=== PATIENT | female | born 1965 | race Caucasian/White ===

== ENCOUNTER → 2016-12-05 | Outpatient (CLI) | payer BC ==
--- NOTE | 2016-12-05 14:58 | Diagnostic Imaging Report ---
EXAMINATION: Right lower extremity duplex venous ultrasound. TECHNIQUE: DVT protocol. Multiple sonographic images with color Doppler and waveform interrogation were performed of the right lower extremity veins with compression and augmentation maneuvers. INDICATION: Right leg pain. FINDINGS: The right lower extremity veins from the groin to below the knee veins were examined with normal color-flow, compressibility and normal waveform demonstrated. The great saphenous vein is patent. IMPRESSION: No evidence of DVT in the right lower extremity. Dictated by: Dictated on workstation # [id number]
== END ==
LOC: RAD 14:12
PROVIDERS: ATTEND Nurse Practitioner Family
DX: M79.661 Pain in right lower leg (principal)

== ENCOUNTER → 2017-01-08 | Outpatient (CLI) | payer BC ==
--- NOTE | 2017-01-08 11:46 | Diagnostic Imaging Report ---
Transabdominal and transvaginal pelvic ultrasound. INDICATION: Right lower quadrant pain. FINDINGS: The uterus is 4.4 x 3.4 x 2.6 CM. The endometrial stripe is 0.6 CM in thickness. No internal vascularity seen. No focal myometrial mass is noted. The patient 3 years postmenopausal. The ovaries are not seen, likely obscured by bowel gas and small in size. The urinary bladder appears unremarkable. IMPRESSION: There is endometrial thickening measuring 0.6 CM. Underlying uterine hyperplasia, carcinoma or polyp could be present. Correlate clinically and with endometrial biopsy is needed. Report was called to Kyara Farnsworth by lyndsey at 11:45 am. Dictated by: Dictated on workstation # [id number]
== END ==
LOC: RAD 10:58
PROVIDERS: ATTEND Nurse Practitioner
DX: N85.2 Hypertrophy of uterus (principal); R10.31 Right lower quadrant pain
CPT/HCPCS: 76830; 76856

== ENCOUNTER → 2017-06-12 | Outpatient (CLI) | payer BC ==
--- NOTE | 2017-06-12 10:57 | Diagnostic Imaging Report ---
EXAMINATION: Right upper extremity venous vascular duplex ultrasound. INDICATION: Right upper extremity pain. FINDINGS: The right internal jugular vein is patent and compressible. The right subclavian vein demonstrate complete occlusive thrombosis with thrombus extension into the mid axillary vein, with total length of about 10 CM. The brachial vein is patent. The basilic, the radial, the ulnar and cephalic veins are patent. 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 The findings were discussed personally with Dr. Sidney Desai at 10 AM. Dictated by: Dictated on workstation # [id number]
== END ==
LOC: RAD 09:01
PROVIDERS: ATTEND Nurse Practitioner Family
DX: I82.A11 Acute embolism and thrombosis of right axillary vein (principal); I82.B11 Acute embolism and thrombosis of right subclavian vein

== ENCOUNTER 2017-06-14 11:02 | Emergency (ER) | payer BC ==
[~2017-06-14] VITALS: Ht 162.6 cm; Wt 54.9 kg
--- OUTSIDE RECORDS SUMMARY | 2017-06-14 11:08 | XMS REPORT | Clinical Summary ---
Author Author User, [employer] Lanie Mcrae DO, FACP Address Unknown Phone Allergies, Adverse Reactions, Alerts Allergy Name Reaction Description Start Date Severity Status Provider PENICILLIN Rash Critical Active Lanie Mcrae Conditions or Problems Problem Name Problem Code Onset Date Status Entry Date Provider Comment Standard Description Annotate UNSPECIFIED PERIPHERAL VASCULAR DISEASE 443.9 Resolved Lanie Mcrae Peripheral vascular disease, unspecified WELL WOMAN V70.0 Resolved Lanie Mcrae Routine general medical examination at a [facility] care facility RAYNAUD'S SYNDROME 443.0 Active Lanie Mcrae Raynaud's syndrome AUTOIMMUNE DISEASE NOT ELSEWHERE CLASSIFIED 279.49 Resolved Lanie Mcrae Autoimmune disease, not elsewhere classified POLYARTHRALGIA 719.49 Active Lanie Mcrae Pain in joint involving multiple sites HYPERCHOLESTEROLEMIA 272.0 Active Lanie Mcrae Pure hypercholesterolemia NEUROPATHY, IDIOPATHIC PERIPHERAL 356.9 Active Lanie Mcrae Unspecified idiopathic peripheral neuropathy VITAMIN B12 DEFICIENCY 266.2 Resolved Lanie Mcrae Other B-complex deficiencies RHEUMATOID ARTHRITIS 714.0 Resolved Lanie Mcrae Rheumatoid arthritis BRONCHITIS 490 Resolved Lanie Mcrae Bronchitis, not specified as acute or chronic CONNECTIVE TISSUE DISEASE, UNDIFFERENTIATED 710.9 Active Lanie Mcrae Unspecified diffuse connective tissue disease Medication List Medication Instructions Start Date Stop Date Generic Name [facility] Status Provider Patient Instruction ESTRIOL/ESTRADIOL (80/20%) 0.3MG/0.1ML CREAM APPLY 0.5ML TOPICALLY EVERY DAY ESTRIOL/ESTRADIOL (80/20%) 0.3MG/0.1ML CREAM Active Lanieshyam Mcrae PROGESTERONE CREAM 60MG/GM APPLY ONE HALF ML TOPICALLY AT HS DIRECTED 2014 PROGESTERONE CREAM 60MG/GM Active Lanie Mcrae TESTOSTERONE 0.2%/DELTA CREAM APPLY 0.25 ML TOPICALLY ONE DAILY DIRECTED TESTOSTERONE 0.2%/DELTA CREAM Active Lanieshaym Mcrae CLARITIN-D 12 HOUR [id number] 1 PO BID PRN LORATADINE- PSEUDOEPHEDRINE [id number] Active Lanieshyam Mcrae MULTIVITAMINS TABS 1 po daily MULTIPLE VITAMIN 87852663876 No Longer Active Lanie Chacha Mcrae PLAQUENIL 200 MG TAB 1.5 po QD HYDROXYCHLOROQUINE SULFATE 01368262676 No Longer Active Lanie Chacha Mcrae NABUMETONE 750 MG TABS 1 PO BID NABUMETONE 54029802799 No Longer Active Lanie Chacha Mcrae NIFEDIPINE 30 MG [id number] 1 PO daily NIFEDIPINE 59223392654 No Longer Active Lanie Chacha Mcrae TUSSIONEX PENNKINETIC ER 8-10 MG/5ML LQCR 1 tsp PO BID prn cough CHLORPHENIRAMINE-HYDROCODONE 12904371193 No Longer Active Lanie Chacha Mcrae KEFLEX 500 MG CAP 1 PO TID for 7 days CEPHALEXIN 63700111446 No Longer Active Lanie Chacha Mcrae TUSSIONEX PENNKINETIC ER 8-10 MG/5ML LQCR 1 tsp PO TID prn cough CHLORPHENIRAMINE-HYDROCODONE 93318087206 No Longer Active Lanie Chacha Mcrae FELDENE 10 MG CAPS 2 PO daily at night PIROXICAM 15463110788 No Longer Active Lanie Mcrae ALPRAZOLAM 0.25 MG TABS 1 po prn anxiety ALPRAZOLAM 07163356455 Active Lanie Chacha Rodriguezner Vital Signs Date Name Value Unit Range Description blood pressure, diastolic - 8462-4 60 mm[Hg] BP lua blood pressure, systolic - 8480-6 120 mm[Hg] BP sys pulse rate E&M - 8867-4 60 /min Heart rate respiratory rate E&M - 9279-1 14 /min Resp rate weight E&M - 3141-9 120 [lb_av] Weight Measured Diagnostic Results Date Name Value Unit Range Description Clinical Lists Update: CBC,CMP,TSH,FREE T4,HGA1C,FERRITIN - Chemistry Estimated Glomerular Filtration Rate (calc) 105 mL/min/1.73m2 glucose, plasma fasting 79 mg/dL albumin, serum 4.1 g/dL alkaline phosphatase, serum 42 U/L urea nitrogen, blood 17 mg/dL calcium, serum 8.9 mg/dL chloride, serum 101 mmol/L carbon dioxide, venous blood 25 mmol/L creatinine, serum 0.96 mg/dL ferritin, serum 13 ng/mL thyroxine, serum, free 1.3 ng/dL hemoglobin A1C, blood, as % of total hemoglobin 5.3 % thyroid stimulating hormone, serum 1.35 u[iU]/mL potassium, serum 4.4 mmol/L sodium, serum 135 mmol/L bilirubin, serum, total 0.6 mg/dL alanine aminotransferase (SGPT), serum 15 U/L aspartate aminotransferase (SGOT), serum 19 U/L protein, total, serum 6.4 g/dL Clinical Lists Update: CBC,CMP,TSH,FREE T4,HGA1C,FERRITIN - Hematology mean corpuscular volume, RBC 101.4 fL hemoglobin, blood 13.9 g/dL hematocrit, blood 41.0 % red blood cell distribution width 12.4 % leukocyte count, blood 4.9 10*3/mm3 erythrocyte (RBC) count 4.04 10*6/mm3 platelet count 298 10*3/mm3 Clinical Lists Update: ESR - Hematology erythrocyte sedimentation rate 2 mm/h Clinical Lists Update: [facility] - Chemistry cholesterol, serum 254 mg/dL cholesterol/HDL ratio, serum, percent 2.4 LDL cholesterol, serum 132 mg/dL triglyceride, serum, fasting 84 mg/dL HDL cholesterol, serum 105 mg/dL Encounters Code Encounter Date Provider Facility CPT-45892 Ofc Vst, Est Level IV 17:15:07 CDT Lanie Mcrae, DO, FACP CPT-45006 Ofc Vst, Est Level IV 17:13:37 CDT Lanie Mcrae, DO, FACP CPT-76710 Ofc Vst, Est Level III 12:50:11 WATERWORKS OPERATOR Lanie Mcrae, DO, FACP CPT-42054 Ofc Vst, Est Level III 10:07:15 WATERWORKS OPERATOR Lanie Mcrae, DO, FACP CPT-39535 Ofc Vst, Est Level IV 11:04:36 WATERWORKS OPERATOR Lanie Mcrae, DO, FACP CPT-39284 Ofc Vst, Est Level IV 11:27:21 WATERWORKS OPERATOR Lanie Mcrae, DO, FACP CPT-63058 Ofc Vst, New Level IV 15:18:55 WATERWORKS OPERATOR Lanie Mcrae, DO, FACP
--- OUTSIDE RECORDS SUMMARY | 2017-06-14 11:08 | XMS REPORT | Clinical Summary ---
Author Author User, [employer] Lanie Mcrae DO, FACP Address Unknown Phone [...] Mcrae Routine general medical examination at a [facility] care facility RAYNAUD'S SYNDROME 443.0 Active [...] Instructions Start Date Stop Date Generic Name [facility] Status Provider Patient Instruction ESTRIOL/ESTRADIOL (80/20%) 0.3MG/0.1ML CREAM APPLY 0.5ML TOPICALLY EVERY DAY ESTRIOL/ESTRADIOL (80/20%) 0.3MG/0.1ML CREAM Active Lanieshyam Mcrae PROGESTERONE CREAM 60MG/GM APPLY ONE HALF ML TOPICALLY AT HS DIRECTED 2014 PROGESTERONE CREAM 60MG/GM Active aLnie Mcrae TESTOSTERONE 0.2%/DELTA CREAM APPLY 0.25 ML TOPICALLY ONE DAILY DIRECTED TESTOSTERONE 0.2%/DELTA CREAM Active Lanieshyam Mcrae CLARITIN-D 12 HOUR [id number] 1 PO BID PRN LORATADINE- PSEUDOEPHEDRINE [id number] 26810154286 Active Lanieshyam Mcrae MULTIVITAMINS TABS 1 po daily MULTIPLE VITAMIN 87620780219 No Longer Active Lanie Chacha Mcrae PLAQUENIL 200 MG TAB 1.5 po QD HYDROXYCHLOROQUINE SULFATE 43071891669 No Longer Active Lanie Chacha Mcrae NABUMETONE 750 MG TABS 1 PO BID NABUMETONE 22419007717 No Longer Active Lanie Chacha Mcrae NIFEDIPINE 30 MG [id number] 1 PO daily NIFEDIPINE 11778350730 No Longer Active Lanie Chacha Mcrae TUSSIONEX PENNKINETIC ER 8-10 MG/5ML LQCR 1 tsp PO BID prn cough CHLORPHENIRAMINE-HYDROCODONE 68928274349 No Longer Active Lanie Chacha Mcrae KEFLEX 500 MG CAP 1 PO TID for 7 days CEPHALEXIN 82887383087 No Longer Active Lanie Chacha Mcrae TUSSIONEX PENNKINETIC ER 8-10 MG/5ML LQCR 1 tsp PO TID prn cough CHLORPHENIRAMINE-HYDROCODONE 77891944682 No Longer Active Lanie Chacha Mcrae FELDENE 10 MG CAPS 2 PO daily at night PIROXICAM 85110279152 No Longer Active Lanie Mcrae ALPRAZOLAM 0.25 MG TABS 1 po prn anxiety ALPRAZOLAM 74365747368 Active Lanie Chacha Rodriguezner Vital Signs Date [...] mg/dL Encounters Code Encounter Date Provider Facility CPT-94721 Ofc Vst, Est Level IV 17:15:07 CDT Lanie Mcrae, DO, FACP CPT-97271 Ofc Vst, Est Level IV 17:13:37 CDT Lanie Mcrae, DO, FACP CPT-50168 Ofc Vst, Est Level III 12:50:11 ELECTRONIC WARFARE OFFICER Lanie Mcrae, DO, FACP CPT-62491 Ofc Vst, Est Level III 10:07:15 ELECTRONIC WARFARE OFFICER Lanie Mcrae, DO, FACP CPT-96270 Ofc Vst, Est Level IV 11:04:36 ELECTRONIC WARFARE OFFICER Lanie Mcrae, DO, FACP CPT-31140 Ofc Vst, Est Level IV 11:27:21 ELECTRONIC WARFARE OFFICER Lanie Mcrae, DO, FACP CPT-20632 Ofc Vst, New Level IV 15:18:55 ELECTRONIC WARFARE OFFICER Lanie Mcrae, DO, FACP
--- OUTSIDE RECORDS SUMMARY | 2017-06-14 11:08 | XMS REPORT | Clinical Summary ---
Author Author User, [employer] Lanie Mcrae DO, CARLOP Address Unknown Phone Allergies, Adverse Reactions, Alerts Allergy Name Reaction Description Start Date Severity Status Provider PENICILLIN Rash Critical Active Lanie Mcrae Conditions or Problems Problem Name Problem Code Onset Date Status Entry Date Provider Comment Standard Description Annotate UNSPECIFIED PERIPHERAL VASCULAR DISEASE 443.9 Resolved Lanie Mcrae Peripheral vascular disease, unspecified WELL WOMAN V70.0 Resolved Lanie Mcrae Routine general medical examination at a [facility] care facility RAYNAUD'S SYNDROME 443.0 Active Lanie [...] Instructions Start Date Stop Date Generic Name NDC Status Provider Patient Instruction ESTRIOL/ESTRADIOL (80/20%) 0.3MG/0.1ML CREAM APPLY 0.5ML TOPICALLY EVERY DAY ESTRIOL/ESTRADIOL (80/20%) 0.3MG/0.1ML CREAM Active Lanie Mcrae PROGESTERONE CREAM 60MG/GM APPLY ONE HALF ML TOPICALLY AT HS DIRECTED 2014 PROGESTERONE CREAM 60MG/GM Active Lanie Mcrae TESTOSTERONE 0.2%/DELTA CREAM APPLY 0.25 ML TOPICALLY ONE DAILY DIRECTED TESTOSTERONE 0.2%/DELTA CREAM Active Lanie Mcrae CLARITIN-D 12 HOUR [id number] 1 PO BID PRN LORATADINE- PSEUDOEPHEDRINE [id number] 55935894305 Active Lanieshyam Mcrae MULTIVITAMINS TABS 1 po daily MULTIPLE VITAMIN 76960536778 No Longer Active Lanie Chacha Mcrae PLAQUENIL 200 MG TAB 1.5 po QD HYDROXYCHLOROQUINE SULFATE 47607966631 No Longer Active Lanieshyam Mcrae NABUMETONE 750 MG TABS 1 PO BID NABUMETONE 46788275468 No Longer Active Lanieshyam Mcrae NIFEDIPINE 30 MG [id number] 1 PO daily NIFEDIPINE 10552108598 No Longer Active Lanie Chacha Mcrae TUSSIONEX PENNKINETIC ER 8-10 MG/5ML LQCR 1 tsp PO BID prn cough CHLORPHENIRAMINE-HYDROCODONE 00428441782 No Longer Active Lanie Chacha Mcrae KEFLEX 500 MG CAP 1 PO TID for 7 days CEPHALEXIN 53315733387 No Longer Active Lanie Chacha Mcrae TUSSIONEX PENNKINETIC ER 8-10 MG/5ML LQCR 1 tsp PO TID prn cough CHLORPHENIRAMINE-HYDROCODONE 20823680322 No Longer Active Lanie Chacha Mcrae FELDENE 10 MG CAPS 2 PO daily at night PIROXICAM 67182839272 No Longer Active Lanie Mcrae ALPRAZOLAM 0.25 MG TABS 1 po prn anxiety ALPRAZOLAM 90251604123 Active Lanie Chacha Mcrae Vital Signs Date Name Value Unit Range [...] mg/dL Encounters Code Encounter Date Provider Facility CPT-96943 Ofc Vst, Est Level IV 17:15:07 CDT Lanie Mcrae, DO, FACP CPT-89183 Ofc Vst, Est Level IV 17:13:37 CDT Lanie Mcrae, DO, FACP CPT-24285 Ofc Vst, Est Level III 12:50:11 SUPERVISOR W[employer] Lanie Mcrae DO, FACP CPT-16701 Ofc Vst, Est Level III 10:07:15 [employer]PER[employer]OR [employer] Lanie Mcrae, DO, FACP CPT-16095 Ofc Vst, Est Level IV 11:04:36 SUPERVISOR [employer] Lanie Mcrae, DO, FACP CPT-00703 Ofc Vst, Est Level IV 11:27:21 SUPERVISOR [employer] Lanie Mcrae DO, FACP CPT-87874 Ofc Vst, New Level IV 15:18:55 SUPER[employer]OR [employer] Lanie Mcrae, DO, FACP
--- OUTSIDE RECORDS SUMMARY | 2017-06-14 11:09 | XMS REPORT | Clinical Summary ---
Author Author User, [employer] Lanie Mcrae DO, CARLOP Address Unknown Phone [...] Mcrae Routine general medical examination at a [facility] care facility RAYNAUD'S SYNDROME 443.0 Active [...] CREAM Active Lanie Mcrae CLARITIN-D 12 HOUR [id number] 1 PO BID PRN LORATADINE- PSEUDOEPHEDRINE [id number] 47476877205 Active Lanieshyam Mcrae MULTIVITAMINS TABS 1 po daily MULTIPLE VITAMIN 73558958736 No Longer Active Lanie Chacha Mcrae PLAQUENIL 200 MG TAB 1.5 po QD HYDROXYCHLOROQUINE SULFATE 16504952847 No Longer Active Lanieshyam Mcrae NABUMETONE 750 MG TABS 1 PO BID NABUMETONE 87810910316 No Longer Active Lanieshyam Mcrae NIFEDIPINE 30 MG [id number]-WPD 1 PO daily NIFEDIPINE 01644378117 No Longer Active Lanie Chacha Mcrae TUSSIONEX PENNKINETIC ER 8-10 MG/5ML LQCR 1 tsp PO BID prn cough CHLORPHENIRAMINE-HYDROCODONE 55944745837 No Longer Active Lanie Chacha Mcrae KEFLEX 500 MG CAP 1 PO TID for 7 days CEPHALEXIN 50454699300 No Longer Active Lanie Chacha Mcrae TUSSIONEX PENNKINETIC ER 8-10 MG/5ML LQCR 1 tsp PO TID prn cough CHLORPHENIRAMINE-HYDROCODONE 53991556067 No Longer Active Lanie Chacha Mcrae FELDENE 10 MG CAPS 2 PO daily at night PIROXICAM 40546633960 No Longer Active Lanieshyam Wilsone Clementina ALPRAZOLAM 0.25 MG TABS 1 po prn anxiety ALPRAZOLAM 51597910964 Active Lanie Mcrae Vital Signs Date Name Value Unit [...] Value Unit Range Description Clinical Lists Update: CBC,CMP,ESR,Ferritin,FLP - Chemistry urea nitrogen, blood 13 mg/dL alanine aminotransferase (SGPT), serum 21 U/L protein, total, serum 6.7 g/dL glucose, plasma fasting 91 mg/dL triglyceride, serum, fasting 204 mg/dL alkaline phosphatase, serum 43 U/L potassium, serum 3.9 mmol/L sodium, serum 137 mmol/L calcium, serum 9.4 mg/dL aspartate aminotransferase (SGOT), serum 24 U/L chloride, serum 100 mmol/L Estimated Glomerular Filtration Rate (calc) 73 mL/min/1.73m2 cholesterol, serum 258 mg/dL albumin, serum 4.5 g/dL carbon dioxide, venous blood 27 mmol/L ferritin, serum 15 ng/mL creatinine, serum 0.92 mg/dL bilirubin, serum, total 0.6 mg/dL Clinical Lists Update: CBC,CMP,ESR,Ferritin,FLP - Hematology hematocrit, blood 42.1 % erythrocyte (RBC) count 4.25 10*6/mm3 platelet count 304 10*3/mm3 erythrocyte sedimentation rate 9 mm/h leukocyte count, blood 5.5 10*3/mm3 hemoglobin, blood 14.2 g/dL red blood cell distribution width 13.0 % mean corpuscular volume, RBC 99.0 fL Clinical Lists Update: CBC,CMP,TSH,FREE T4,HGA1C,FERRITIN - Chemistry albumin, serum 4.1 g/dL alkaline phosphatase, serum 42 U/L urea nitrogen, blood 17 mg/dL calcium, serum 8.9 mg/dL chloride, serum 101 mmol/L creatinine, serum 0.96 mg/dL ferritin, serum 13 ng/mL thyroxine, serum, free 1.3 ng/dL hemoglobin A1C, blood, as % of total hemoglobin 5.3 % thyroid stimulating hormone, serum 1.35 u[iU]/mL potassium, serum 4.4 mmol/L protein, total, serum 6.4 g/dL aspartate aminotransferase (SGOT), serum 19 U/L alanine aminotransferase (SGPT), serum 15 U/L bilirubin, serum, total 0.6 mg/dL sodium, serum 135 mmol/L glucose, plasma fasting 79 mg/dL Estimated Glomerular Filtration Rate (calc) 105 mL/min/1.73m2 carbon dioxide, venous blood 25 mmol/L Clinical Lists Update: CBC,CMP,TSH,FREE T4,HGA1C,FERRITIN - Hematology erythrocyte (RBC) count 4.04 10*6/mm3 hematocrit, blood 41.0 % red blood cell distribution width 12.4 % leukocyte count, blood 4.9 10*3/mm3 platelet count 298 10*3/mm3 mean corpuscular volume, RBC 101.4 fL hemoglobin, blood 13.9 g/dL Clinical Lists Update: ESR - Hematology erythrocyte sedimentation rate 2 mm/h Clinical Lists Update: [facility] - Chemistry cholesterol/HDL ratio, serum, percent 2.4 triglyceride, serum, fasting 84 mg/dL HDL cholesterol, serum 105 mg/dL cholesterol, serum 254 mg/dL LDL cholesterol, serum 132 mg/dL Encounters Code Encounter Date Provider Facility CPT-77874 Ofc Vst, Est Level IV 17:15:07 CDT Lanie Mcrae, DO, FACP CPT-56560 Ofc Vst, Est Level IV 17:13:37 CDT Lanie Mcrae, DO, FACP CPT-40283 Ofc Vst, Est Level III 12:50:11 REGIONAL FLATBED TRUCK DRIVER Lanie Mcrae, DO, FACP CPT-62734 Ofc Vst, Est Level III 10:07:15 REGIONAL FLATBED TRUCK DRIVER Lanie Mcrae, DO, FACP CPT-37648 Ofc Vst, Est Level IV 11:04:36 REGIONAL FLATBED TRUCK DRIVER Lanie Mcrae, DO, FACP CPT-19617 Ofc Vst, Est Level IV 11:27:21 REGIONAL FLATBED TRUCK DRIVER Lanie Mcrae, DO, FACP CPT-26622 Ofc Vst, New Level IV 15:18:55 REGIONAL FLATBED TRUCK DRIVER Lanie Mcrae, DO, FACP
--- OUTSIDE RECORDS SUMMARY | 2017-06-14 11:09 | XMS REPORT | Clinical Summary ---
Author Author User, [employer] Lanie Mcrae DO, FACP Address Unknown Phone [...] Mcrae Routine general medical examination at a [facility] care facility RAYNAUD'S SYNDROME 443.0 Active [...] Lanie Mcrae Unspecified diffuse connective tissue disease MENOPAUSAL SYNDROME 627.0 Active Lanie Mcrae Premenopausal menorrhagia Medication List Medication Instructions Start Date Stop Date Generic Name NDC Status Provider Patient Instruction EEMT HS 0.625-1.25 MG TABS 1 po daily EST ESTROGENS- METHYLTEST 48658877894 Active Ann Mae CLIMARA PRO 0.045-0.015 MG/DAY PTWK 1 patch weekly ESTRADIOL- LEVONORGESTREL 30725014881 Active Lanie Mcrae ESTRIOL/ESTRADIOL (80/20%) 0.3MG/0.1ML CREAM APPLY 0.5ML TOPICALLY EVERY DAY ESTRIOL/ESTRADIOL (80/20%) 0.3MG/0.1ML CREAM No Longer Active Lanie Mcrae PROGESTERONE CREAM 60MG/GM APPLY ONE HALF ML TOPICALLY AT HS DIRECTED 2014 PROGESTERONE CREAM 60MG/GM No Longer Active Lanie Mcrae TESTOSTERONE 0.2%/DELTA CREAM APPLY 0.25 ML TOPICALLY ONE DAILY DIRECTED TESTOSTERONE 0.2%/EDLTA CREAM No Longer Active Fatimah Cleveland CLARITIN-D 12 HOUR [id number] 1 PO BID PRN LORATADINE- PSEUDOEPHEDRINE [id number] 05653895046 Active Lanie Mcrae MULTIVITAMINS TABS 1 po daily MULTIPLE VITAMIN 13477572935 No Longer Active Lanie Mcrae PLAQUENIL 200 MG TAB 1.5 po QD HYDROXYCHLOROQUINE SULFATE 56741828218 No Longer Active Lanieshyam Mcrae NABUMETONE 750 MG TABS 1 PO BID NABUMETONE 84480026711 No Longer Active Lanie Mcrae NIFEDIPINE 30 MG [id number]-RVM 1 PO daily NIFEDIPINE 67620710266 No Longer Active Lanie Mcrae TUSSIONEX PENNKINETIC ER 8-10 MG/5ML LQCR 1 tsp PO BID prn cough CHLORPHENIRAMINE-HYDROCODONE 29177269004 No Longer Active Lanieshyam Mcrae KEFLEX 500 MG CAP 1 PO TID for 7 days CEPHALEXIN 77307792387 No Longer Active Lanie Chacha Mcrae TUSSIONEX PENNKINETIC ER 8-10 MG/5ML LQCR 1 tsp PO TID prn cough CHLORPHENIRAMINE-HYDROCODONE 22915422553 No Longer Active Lanie Chacha Mcrae FELDENE 10 MG CAPS 2 PO daily at night PIROXICAM 73718927151 No Longer Active Lanie Chacha Mcrae ALPRAZOLAM 0.25 MG TABS 1 po prn anxiety ALPRAZOLAM 01355485430 Active Lanie Chacha Mcrae Vital Signs Date Name Value Unit Range Description blood pressure, diastolic - 8462-4 72 mm[Hg] BP lua blood pressure, systolic - 8480-6 116 mm[Hg] BP sys pulse rate E&M - 8867-4 72 /min Heart rate respiratory rate E&M - 9279-1 14 /min Resp rate temperature E&M 98.6 [degF] Body temperature weight E&M - 3141-9 128 [lb_av] Weight Measured blood pressure, diastolic - 8462-4 60 mm[Hg] [...] mg/dL Encounters Code Encounter Date Provider Facility CPT-45964 Ofc Vst, Est Level IV 17:47:15 CDT Lanie Mcrae DO, FACP CPT-57192 Ofc Vst, Est Level IV 17:15:07 CDT Lanie Mcrae DO, FACP CPT-62925 Ofc Vst, Est Level IV 17:13:37 CDT Lanie Mcrae DO, FACP CPT-54077 Ofc Vst, Est Level III 12:50:11 MANAGER QUAL[employer] SYSTEMS Lanie Mcrae DO, FACP CPT-52746 Ofc Vst, Est Level III 10:07:15 MANAGER [employer]AL[employer] SYSTEMS Lanie Mcrae DO, FACP CPT-83334 Ofc Vst, Est Level IV 11:04:36 MANAGER QUALITY SYSTEMS Lanie Mcrae DO, FACP CPT-90341 Ofc Vst, Est Level IV 11:27:21 MANAGER QUALITY SYSTEMS Lanie Mcrae DO, FACP CPT-94409 Ofc Vst, New Level IV 15:18:55 MANAGER QUALITY SYSTEMS Lanie Mcrae DO, FACP
--- OUTSIDE RECORDS SUMMARY | 2017-06-14 11:09 | XMS REPORT | Clinical Summary ---
Author Author User, [employer] Lanie Mcrae DO, FACP Address Unknown Phone [...] Mcrae Routine general medical examination at a [facility] care facility RAYNAUD'S SYNDROME 443.0 Active Lanie [...] Instructions Start Date Stop Date Generic Name [facility] Status Provider Patient Instruction ESTRIOL/ESTRADIOL (80/20%) 0.3MG/0.1ML CREAM APPLY 0.5ML TOPICALLY EVERY DAY ESTRIOL/ESTRADIOL (80/20%) 0.3MG/0.1ML CREAM Active Lanieshyam Mcrae PROGESTERONE CREAM 60MG/GM APPLY ONE HALF ML TOPICALLY AT HS DIRECTED 2014 PROGESTERONE CREAM 60MG/GM Active Lanie Mcrae TESTOSTERONE 0.2%/DELTA CREAM APPLY 0.25 ML TOPICALLY ONE DAILY DIRECTED TESTOSTERONE 0.2%/DELTA CREAM Active Lanieshyam Mcrae CLARITIN-D 12 HOUR [id number] 1 PO BID PRN LORATADINE- PSEUDOEPHEDRINE [id number] 59732317517 Active Lanieshyam Mcrae MULTIVITAMINS TABS 1 po daily MULTIPLE VITAMIN 66132285276 No Longer Active Lanie Chacha Mcrae PLAQUENIL 200 MG TAB 1.5 po QD HYDROXYCHLOROQUINE SULFATE 97533126623 No Longer Active Lanie Chacha Mcrae NABUMETONE 750 MG TABS 1 PO BID NABUMETONE 83745903839 No Longer Active Lanie Chacha Mcrae NIFEDIPINE 30 MG AP36R-YUD 1 PO daily NIFEDIPINE 34057369949 No Longer Active Lanie Chacha Mcrae TUSSIONEX PENNKINETIC ER 8-10 MG/5ML LQCR 1 tsp PO BID prn cough CHLORPHENIRAMINE-HYDROCODONE 47056069461 No Longer Active Lanie Chacha Mcrae KEFLEX 500 MG CAP 1 PO TID for 7 days CEPHALEXIN 93490805302 No Longer Active Lanie hCacha Mcrae TUSSIONEX PENNKINETIC ER 8-10 MG/5ML LQCR 1 tsp PO TID prn cough CHLORPHENIRAMINE-HYDROCODONE 85848273331 No Longer Active Lanie Chacha Mcrae FELDENE 10 MG CAPS 2 PO daily at night PIROXICAM 13437212326 No Longer Active Lanie Mcrae ALPRAZOLAM 0.25 MG TABS 1 po prn anxiety ALPRAZOLAM 65918873957 Active Lanie Chacha Rodriguezner Vital Signs Date [...] mg/dL Encounters Code Encounter Date Provider Facility CPT-31443 Ofc Vst, Est Level IV 17:15:07 CDT Lanie Mcrae, DO, FACP CPT-39263 Ofc Vst, Est Level IV 17:13:37 CDT Lanie Mcrae, DO, FACP CPT-03246 Ofc Vst, Est Level III 12:50:11 COLLAR SHAPER OPERATOR Lanie Mcrae, DO, FACP CPT-03928 Ofc Vst, Est Level III 10:07:15 COLLAR SHAPER OPERATOR Lanie Mcrae, DO, FACP CPT-07142 Ofc Vst, Est Level IV 11:04:36 COLLAR SHAPER OPERATOR Lanie Mcrae, DO, FACP CPT-77149 Ofc Vst, Est Level IV 11:27:21 COLLAR SHAPER OPERATOR Lanie Mcrae, DO, FACP CPT-19866 Ofc Vst, New Level IV 15:18:55 COLLAR SHAPER OPERATOR Lanie Mcrae, DO, FACP
--- OUTSIDE RECORDS SUMMARY | 2017-06-14 11:09 | XMS REPORT | Clinical Summary ---
Author Author User, [employer] Lanie Mcrae DO, FACP Address Unknown Phone [...] Mcrae Routine general medical examination at a [facility] care facility [facility] 443.0 Active [...] Instructions Start Date Stop Date Generic Name [facility] Status Provider Patient Instruction ESTRIOL/ESTRADIOL (80/20%) 0.3MG/0.1ML CREAM APPLY 0.5ML TOPICALLY EVERY DAY ESTRIOL/ESTRADIOL (80/20%) 0.3MG/0.1ML CREAM Active Lanieshyam Mcrae PROGESTERONE CREAM 60MG/GM APPLY ONE HALF ML TOPICALLY AT HS DIRECTED 2014 PROGESTERONE CREAM 60MG/GM Active Lanie Mcrae TESTOSTERONE 0.2%/DELTA CREAM APPLY 0.25 ML TOPICALLY ONE DAILY DIRECTED TESTOSTERONE 0.2%/DELTA CREAM Active Lanieshyam Mcrae CLARITIN-D 12 HOUR [id number] 1 PO BID PRN LORATADINE- PSEUDOEPHEDRINE [id number] 52768061539 Active Lanieshyam Mcrae MULTIVITAMINS TABS 1 po daily MULTIPLE VITAMIN 01788242318 No Longer Active Lanie Chacha Mcrae PLAQUENIL 200 MG TAB 1.5 po QD HYDROXYCHLOROQUINE SULFATE 83953086977 No Longer Active Lanie Chacha Mcrae NABUMETONE 750 MG TABS 1 PO BID NABUMETONE 88986864974 No Longer Active Lanie Chacha Mcrae NIFEDIPINE 30 MG [id number] 1 PO daily NIFEDIPINE 23057311089 No Longer Active Lanie Chacha Mcrae TUSSIONEX PENNKINETIC ER 8-10 MG/5ML LQCR 1 tsp PO BID prn cough CHLORPHENIRAMINE-HYDROCODONE 95328485065 No Longer Active Lanie Chacha Mcrae KEFLEX 500 MG CAP 1 PO TID for 7 days CEPHALEXIN 06082710360 No Longer Active Lanie Chacha Mcrae TUSSIONEX PENNKINETIC ER 8-10 MG/5ML LQCR 1 tsp PO TID prn cough CHLORPHENIRAMINE-HYDROCODONE 22632533686 No Longer Active Lanie Chacha Mcrae FELDENE 10 MG CAPS 2 PO daily at night PIROXICAM 64943910141 No Longer Active Lanie Mcrae ALPRAZOLAM 0.25 MG TABS 1 po prn anxiety ALPRAZOLAM 62947294365 Active Lanie Chacha Rodriguezner Vital Signs Date [...] mg/dL Encounters Code Encounter Date Provider Facility CPT-97128 Ofc Vst, Est Level IV 17:15:07 CDT Lanie Mcrae, DO, FACP CPT-60628 Ofc Vst, Est Level IV 17:13:37 CDT Lanie Mcrae, DO, FACP CPT-16391 Ofc Vst, Est Level III 12:50:11 MANPOWER DEVELOPMENT MANAGER Lanie Mcrae, DO, FACP CPT-82008 Ofc Vst, Est Level III 10:07:15 MANPOWER DEVELOPMENT MANAGER Lanie Mcrae, DO, FACP CPT-74486 Ofc Vst, Est Level IV 11:04:36 MANPOWER DEVELOPMENT MANAGER Lanie Mcrae, DO, FACP CPT-28210 Ofc Vst, Est Level IV 11:27:21 MANPOWER DEVELOPMENT MANAGER Lanie Mcrae, DO, FACP CPT-42327 Ofc Vst, New Level IV 15:18:55 MANPOWER DEVELOPMENT MANAGER Lanie Mcrae, DO, FACP
--- OUTSIDE RECORDS SUMMARY | 2017-06-14 11:09 | XMS REPORT | Clinical Summary ---
Author Author User, [employer] Lanie Mcrae DO, CARLOP Address Unknown Phone [...] Mcrae Routine general medical examination at a [facility] care facility [facility] 443.0 Active Lanie [...] CREAM Active Lanie Mcrae CLARITIN-D 12 HOUR [id number] 1 PO BID PRN LORATADINE- PSEUDOEPHEDRINE [id number] 15030329245 Active Lanieshyam Mcrae MULTIVITAMINS TABS 1 po daily MULTIPLE VITAMIN 92972364746 No Longer Active Lanie Chacha Mcrae PLAQUENIL 200 MG TAB 1.5 po QD HYDROXYCHLOROQUINE SULFATE 94078532164 No Longer Active Lanieshyam Mcrae NABUMETONE 750 MG TABS 1 PO BID NABUMETONE 91945294908 No Longer Active Lanieshyam Mcrae NIFEDIPINE 30 MG [id number] 1 PO daily NIFEDIPINE 70827889708 No Longer Active Lanie Chacha Mcrae TUSSIONEX PENNKINETIC ER 8-10 MG/5ML LQCR 1 tsp PO BID prn cough CHLORPHENIRAMINE-HYDROCODONE 10940797694 No Longer Active Lanie Chacha Mcrae KEFLEX 500 MG CAP 1 PO TID for 7 days CEPHALEXIN 59298551215 No Longer Active Lanie Chacha Mcrae TUSSIONEX PENNKINETIC ER 8-10 MG/5ML LQCR 1 tsp PO TID prn cough CHLORPHENIRAMINE-HYDROCODONE 14069920738 No Longer Active Lanie Chacha Mcrae FELDENE 10 MG CAPS 2 PO daily at night PIROXICAM 93459806922 No Longer Active Lanie Mcrae ALPRAZOLAM 0.25 MG TABS 1 po prn anxiety ALPRAZOLAM 28370348027 Active Lanie Chacha Mcrae Vital Signs Date [...] mg/dL Encounters Code Encounter Date Provider Facility CPT-41575 Ofc Vst, Est Level IV 17:15:07 CDT Lanie Mcrae, DO, FACP CPT-87916 Ofc Vst, Est Level IV 17:13:37 CDT Lanie Mcrae, DO, FACP CPT-80859 Ofc Vst, Est Level III 12:50:11 CLEANING VALIDATION CONSULTANT Lanie Mcrae DO, FACP CPT-83325 Ofc Vst, Est Level III 10:07:15 CLEANING VALIDATION CONSULTANT Lanie Mcrae, DO, FACP CPT-98209 Ofc Vst, Est Level IV 11:04:36 CLEANING VALIDATION CONSULTANT Lanie Mcrae, DO, FACP CPT-15392 Ofc Vst, Est Level IV 11:27:21 CLEANING VALIDATION CONSULTANT Lanie Mcrae DO, FACP CPT-03357 Ofc Vst, New Level IV 15:18:55 CLEANING VALIDATION CONSULTANT Lanie Mcrae, DO, FACP
--- OUTSIDE RECORDS SUMMARY | 2017-06-14 11:10 | XMS REPORT | Continuity of Care Document ---
Demographics Preferred Language Unknown Marital Status Unknown Druze Affiliation Unknown Race Unknown Ethnic Group Unknown Author Author [facility] Address Unknown Phone Unavailable Allergies Active Description Code Type Severity Reaction Onset Reported/Identified Relationship to Patient Clinical Status Yes Penicillins [id number] Drug Allergy Unknown RASH 09/06/2011 Medications There is no data. 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 09/10/2011 Ot 626.2 EXCESSIVE MENSTRUATION 09/11/2012 309.28 AD ADJ D/O W ANX DEP MOOD 09/11/2012 309.28 AD ADJ D/O W ANX DEP MOOD 08/08/2014 SHAYLA LAGOS Ot 704.1 08/08/2014 SHAYLA LAGOS Ot 782.62 08/18/2014 SHAYLA LAGOS Ot 704.1 08/18/2014 SHAYLA LAGOS Ot 782.62 05/20/2016 Ot 626.2 EXCESSIVE MENSTRUATION 05/20/2016 Ot 791.9 ABN URINE FINDINGS NEC 05/20/2016 Ot V72.83 EXAM PRE- OPERATIVE NEC 05/20/2016 MARCEL ADAMS Ot 616.0 CERVICITIS 05/20/2016 MARCEL ADAMS Ot 789.03 ABDOMINAL PAIN, RIGHT LOWER QUADRANT 05/20/2016 GLORIA HANSEN, JORY Romo Ot 478.19 OTHER DISEASE OF NASAL CAVITY AND SINUSE 05/20/2016 SHAYLA LAGOS Ot 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 Encounters ACCT No. Visit Date/Time Discharge Status Pt. Type Provider Facility Loc./Unit Complaint [id number] 09/11/2012 14:59:00 09/11/2012 23:59:59 CLS Outpatient [id number] 10/23/2012 14:57:00 Document Registration [id number] 01/08/2017 10:58:00 01/08/2017 23:59:59 CLS Outpatient MARCEL ADAMS SR VICE PRESIDENT [facility] RAD RLQ ABD PAIN [id number] 12/05/2016 14:12:00 12/05/2016 23:59:59 CLS Outpatient JOSE JARRETT SR VICE PRESIDENT [facility] RAD CALF PAIN [id number] 05/20/2016 08:07:00 05/20/2016 23:59:59 CLS Outpatient JOSE JARRETT SR VICE PRESIDENT [facility] RAD THYROMEGALY [id number] 07/29/2014 14:32:00 07/29/2014 23:59:59 CLS Outpatient SHAYLA LAGOS [facility] LAB HOT FLASHES,HIRSUTISM [id number] 12/15/2013 16:05:00 12/15/2013 23:59:59 CLS Outpatient JORY CASTRO MD [facility] RAD FRONTAL SINUS PAIN AND PRESSURE [id number] 11/19/2013 10:54:00 11/19/2013 23:59:59 CLS Outpatient MARCEL ADAMS SR VICE PRESIDENT [facility] RAD RLQ PAIN [id number] 09/10/2011 05:38:00 Document Registration [id number] 09/06/2011 08:00:00 Document Registration
[2017-06-14] MEDS ORDERED: THYR60TA2 (11:24)
[2017-06-14] MEDS ORDERED: DEXT20TA8 (11:24)
[2017-06-14] MEDS ORDERED: ALPR0.254 (11:24)
[2017-06-14] MEDS ORDERED: LORA-877 (11:24)
[2017-06-14] MEDS ORDERED: PROG200C6 (11:24)
--- NOTE | 2017-06-14 11:27 | ED Chest Pain ---
General Chief Complaint: Chest Pain Stated Complaint: CP AND SOB, DVT Nursing Triage Note: ARRIVED VIA AMB TO ROOM 05. PT HAS A KNOWN RIGHT SUBCLAVIAN BLOOD CLOT THAT SHE IS TAKING XERELTO FOR. PT PRESENTS TODAY WITH CHEST PAIN AND SOA STARTING YESTERDY. Nursing Sepsis Screen: No Definite Risk Source: patient, RN/MD, other Exam Limitations: no limitations History of Present Illness Time seen by provider: 11:10 Initial Comments Patient presents to ER by private conveyance with chief complaint that she is having some chest pain today. 2 days ago she was having some right arm swelling and pain and so she went to her primary care doctor who diagnosed her with a subclavian thrombosis on the right side and put her on Xarelto. The swelling has already improved but her pain has worsened today. Spoke with her primary care physician and he was concerned she might be experiencing a pulmonary embolism. She's having some shortness of breath. She is on hormone replacement therapy but does not smoke nor have any history of trauma recently. She has no personal history of cancer and she says her Pap smear, mammogram and colonoscopy are all up-to-date. She has no unexpected weight change. Discussed the case with Dr. Desai her primary care physician and he says that she has now had protein CAMP COUNSELOR, factor V Leiden other labs drawn and sent off. His thoughts were thoracic syndrome versus pulmonary embolism and if it is a PE there are certainly some invasive thrombectomy that may be done at at tertiary center so we should prove it and her out even though her vitals are not otherwise affected. His feeling is that the estrogen therapy may play a part in all his meds why he is asked her to stop that. He says she should be on day 3 of her Xarelto so is not exactly certain whether to call Xarelto failure if she did develop pulmonary embolism. Allergies and Home Medications Allergies Coded Allergies: Penicillins (Unverified Allergy, Unknown, RASH, 06/14/17) Home Medications Alprazolam 0.25 Mg Tablet, (Reported) Dextroamphetamine/Amphetamine 20 Mg Tablet, (Reported) Loratadine/Pseudoephedrine 1 Each Tab.er.24h, (Reported) Progesterone,Micronized 200 Mg Capsule, (Reported) Thyroid,Pork 60 Mg Tablet, (Reported) Review of Systems Constitutional: No chills, No diaphoresis EENTM: No Blurred Vision, No Eye Pain Respiratory: Denies Cough, Shortness of Air Cardiovascular: See HPI, Chest Pain, Denies Lightheadedness, Denies Palpitations, Denies Syncope Gastrointestinal: Denies Abdomen Distended, Denies Abdominal Pain Genitourinary: Denies Burning, Denies Discharge Musculoskeletal: No back pain, No joint pain Skin: No pruritus, No rash Psychiatric/Neurological: Denies Headache, Denies Numbness Past Plxpohw-Ogidgr-Ibljtr Hx Patient Social History Alcohol Use: Denies Use Recreational Drug Use: No Smoking Status: Never a Smoker Recent Foreign Travel: No Contact w/Someone Who Travel: No Recent Infectious Disease Expo: No Immunizations Up To Date Date of Influenza Vaccine: Apr 23, 2011 Respiratory History of Respiratory Disorde: No Cardiovascular History of Cardiac Disorders: No Neurological History of Neurological Disord: No Reproductive System Hx Reproductive Disorders: Yes (MENORRHAGIA) Genitourinary History of Genitourinary Disor: No Gastrointestinal History of Gastrointestinal Di: No Musculoskeletal 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) Psychosocial History of Psychiatric Problem: No Integumentary History of Skin or Integumenta: No Blood Transfusions History of Blood Disorders: No Physical Exam Vital Signs Vital Sign - Last 12Hours 06/14/17 11:02 Temp 98.0 Pulse 71 Resp 18 B/P (MAP) 126/82 (97) Pulse Ox 99 O2 Delivery Room Air Capillary Refill : Less Than 3 Seconds General Appearance: No Apparent Distress, WD/WN, Anxious HEENT: PERRL/EOMI, Pharynx Normal, Moist Mucous Membranes Neck: Full Range of Motion, Supple Respiratory: Chest Non Tender, Lungs Clear, Normal Breath Sounds, No Accessory Muscle Use, No Respiratory Distress Cardiovascular: Regular Rate, Rhythm, No Edema, No Gallop, No Murmur, Normal Peripheral Pulses Gastrointestinal: Non Tender, Soft Neurologic/Psychiatric: Alert, Oriented x3 Skin: Normal Color, Warm/Dry Progress/Results/Core Measures Results/Orders Lab Results Laboratory Tests Test 06/14/17 11:44 Range/Units White Blood Count 6.0 4.3-11.0 10^3/uL Red Blood Count 4.45 4.35-5.85 10^6/uL Hemoglobin 14.7 11.5-16.0 G/DL Hematocrit 42 35-52 % Mean Corpuscular Volume 94 80-99 FL Mean Corpuscular Hemoglobin 33 25-34 PG Mean Corpuscular Hemoglobin Concent 35 32-36 G/DL Red Cell Distribution Width 11.4 10.0-14.5 % Platelet Count 253 130-400 10^3/uL Mean Platelet Volume 8.9 7.4-10.4 FL Neutrophils (%) (Auto) 66 42-75 % Lymphocytes (%) (Auto) 24 12-44 % Monocytes (%) (Auto) 9 0-12 % Eosinophils (%) (Auto) 1 0-10 % Basophils (%) (Auto) 0 0-10 % Neutrophils # (Auto) 4.0 1.8-7.8 X 10^3 Lymphocytes # (Auto) 1.4 1.0-4.0 X 10^3 Monocytes # (Auto) 0.5 0.0-1.0 X 10^3 Eosinophils # (Auto) 0.1 0.0-0.3 10^3/uL Basophils # (Auto) 0.0 0.0-0.1 10^3/uL Sodium Level 142 135-145 MMOL/L Potassium Level 4.0 3.6-5.0 MMOL/L Chloride Level 106 98-107 MMOL/L Carbon Dioxide Level 27 21-32 MMOL/L Anion Gap 9 5-14 MMOL/L Blood Urea Nitrogen 12 7-18 MG/DL Creatinine 0.75 0.60-1.30 MG/DL Estimat Glomerular Filtration Rate > 60 BUN/Creatinine Ratio 16 Glucose Level 101 70-105 MG/DL Calcium Level 9.4 8.5-10.1 MG/DL Total Bilirubin 0.6 0.1-1.0 MG/DL Aspartate Amino Transf (AST/SGOT) 27 5-34 U/L Alanine Aminotransferase (ALT/SGPT) 24 0-55 U/L Alkaline Phosphatase 52 40-136 U/L Troponin I < 0.30 <0.30 NG/ML Total Protein 6.4 6.4-8.2 GM/DL Albumin 3.9 3.2-4.5 GM/DL My Orders Orders - OH COLIN Ekg Tracing (06/14/17 11:05) Continuous Ekg Monitoring (06/14/17 11:05) Ct Angio Chest W (06/14/17 11:31) Saline Lock/Iv-Start (06/14/17 11:31) Ns Iv 1000 Ml (Sodium Chloride 0.9%) (06/14/17 11:31) Cbc With Automated Diff (06/14/17 11:31) Comprehensive Metabolic Panel (06/14/17 11:31) Troponin I (06/14/17 11:31) Iohexol Injection (Omnipaque 350 Mg/Ml 1 (06/14/17 12:15) Ns (Ivpb) (Sodium Chloride 0.9% Ivpb Bag (06/14/17 12:15) Medications Given in ED Current Medications Medications Dose Ordered Sig/Jeanna Route Start Time Stop Time Status Last Admin Dose Admin Iohexol 150 ml ONCE ONCE IV 06/14/17 12:15 06/14/17 12:17 DC 06/14/17 12:20 125 ML Sodium Chloride 100 ml ONCE ONCE IV 06/14/17 12:15 06/14/17 12:17 DC 06/14/17 12:21 80 ML Sodium Chloride 1,000 ml @ 0 mls/hr Q0M ONCE IV 06/14/17 11:31 06/14/17 11:33 DC 06/14/17 11:42 1,000 MLS/HR Vital Signs/I&O Vital Sign - Last 12Hours 06/14/17 11:02 Temp 98.0 Pulse 71 Resp 18 B/P (MAP) 126/82 (97) Pulse Ox 99 O2 Delivery Room Air Blood Pressure Mean: 97 Progress Note : Time: 13:48 Progress Note Patient is on day 3 of her loading dose of Xarelto so despite having pulmonary embolisms is not immediately necessary does heparinize her. We will discuss anticoagulation as well as possible embolectomy with CT surgery. ECG Initial ECG Impression Date: Jun 14, 2017 Initial ECG Impression Time: 11:06 Initial ECG Rate: 74 Initial ECG Rhythm: Normal Sinus Initial ECG Intervals: Normal Initial ECG Impression: Normal, Nonspecific Changes Initial ECG Comparisson: No Previous ECG Available Comment No T-wave elevation or depression. Diagnostic Imaging Diagonstic Imaging: CT (angio) Plain Films/CT/US/NM/MRI: chest Comments Pulmonary embolisms bilateral lower lungs. 6 mm nodule needing follow-up. [place] NAME: LEIDY BURROWS [facility] REC#: [id number] PT STATUS: REG ER : 1965 PHYSICIAN: OH COLIN MD ADMIT DATE: 06/14/17/ER Draft Date of Exam:06/14/17 CT ANGIO CHEST W CLINICAL INDICATION: Followup DVT of right subclavian vein. Patient has chest pain with coughing. EXAM: CT angiogram of the chest performed with 125 cc Omnipaque 350 IV contrast. Coronal and oblique MIP images of the vasculature were created to better evaluate anatomy. COMPARISON: None. FINDINGS: There is contrast bolus within the left subclavian vein, left innominate vein, and superior vena cava which causes streak artifact obscuring portions of the aortic arch and great vessels. Visualized portions of the right subclavian artery, bilateral CCA and bilateral cervical vertebral arteries are patent. The right subclavian vein has no contrast within it to evaluate. There are partially occlusive intravascular thrombi seen within the posterior medial subsegmental branch of the right lower lobe pulmonary artery. There is also a partially occlusive intravascular thrombus within the anterior subsegmental branch of the left lower lobe. There is no thoracic aortic dissection or aneurysm. There is mild dependent atelectasis involving the posterior aspects of both lungs. There is a 6 mm soft tissue nodule involving the lateral aspect of right lower lobe seen on series 4, image 84. Otherwise, the remainder of the lungs are clear. Pulmonary bronchi are unremarkable. The thyroid gland is unremarkable as visualized. There is no significant mediastinal or hilar lymphadenopathy. There is no axillary lymphadenopathy. Bilateral subglandular breast implants are seen. The visualized portions of the upper abdominal structures are unremarkable. Bone show no significant acute process. IMPRESSION: 1: There are partially occlusive pulmonary emboli/intravascular thrombus within the subsegmental branches of the right and left lower lobes. 2: There is a 6 mm nodule within the lateral aspect of right lower lobe. Followup chest CT scan in six months is suggested to evaluate for stability or resolution. Results of this report were discussed with Dr. Oh Colin via the telephone on 06/14/2017 at 1245 hrs. CRITICAL FINDING Dictated on workstation # [id number] Dict: 06/14/17 1239 Trans: 06/14/17 1257 KB [id number] Interpreted by: MAC ARMIJO MD Electronically signed by: Reviewed: Reviewed by Me Consults Consults : Consults Notes [facility]: CT Surgeon consult Triage coordinator 1315: Will have a trap puller call you back. 1345: Checked back in. trap puller: 1405: Will have the physician review the images and then call us back. 1455: Dr Chaney: He feels that the clots are in the acute phase when a migration from the subclavian thrombus is most likely so he would consider this a failure of the Xarelto and would recommend we switch her to develop this as well as cover her until you get up to therapeutic dosing with Lovenox 1 mg/kg twice a day. He would also suggested we check a factor X a level in 2-3 days on the Lovenox. He would continue treatment with L acquits for 3-6 months. 3 months as long as she was asymptomatic for the last month area longer she has any problems. As far as the nodule; it is too small for any kind of diagnostic imaging or biopsy so he would repeat a CT scan in 6-12 months a stoma level of the patient's anxiety. Also he feels that since the patient is a lifelong nonsmoker that adenocarcinoma would be the most likely cancer and this is often as much as 20% false-negative on PET scans. Because the patient has normal vitals and is otherwise asymptomatic except for mild shortness of breath and mild chest pain he recommends against TPA or embolectomy as the risks outweigh the benefits. Departure Communication (PCP) Discussed case lab imaging findings and Dr. Chaney's recommendations with the PCP. Discussed the need for repeat CT scan in 612 months as well as check after 10 a levels in 2-3 days on the Lovenox. Discussed anticoagulation strategy. Discussed getting the CT scans that are already planned to workup vena cava compression or thoracic outlet syndrome. Impression Impression: Primary Impression: Pulmonary embolism Qualified Codes: I26.99 - Other pulmonary embolism without acute cor pulmonale Additional Impression: Acute embolism from right subclavian vein Disposition: 01 HOME, SELF-CARE Condition: Stable Departure-Patient Inst. Decision time for Depature: 15:17 Referrals: MARIAELENA DESAI DO (PCP) Primary Care Physician JOSE DESAI, EFREN (Family) Primary Care Physician Patient Instructions: Pulmonary Embolism (Blood Clot in the Lungs) (DC) Add. Discharge Instructions: Make sure drinking plenty of water and obtain the Lovenox to be taken 55 mg subcutaneously twice a day. 2-3 days after he start the Lovenox you should follow up with your primary care physician to have blood drawn for a factor X a level. Start the Eliquis tonight and take 2 capsules twice a day for 7 days. Then take one capsule twice a day. Plan to follow up with your primary care physician in one to 2 weeks. Plan to repeat a CT scan in 6-12 months for the right pulmonary nodule seen today on CT scan. Return to the ER if you have acute shortness of breath, chest pain or worsening symptoms. All discharge instructions reviewed with patient and/or family. Voiced understanding. Scripts Apixaban (Eliquis) 5 Mg Tablet 5 MG PO BID for 30 Days, #60 TAB 0 Refills Prov: OH COLIN 06/14/17 Apixaban (Eliquis) 5 Mg Tablet 10 MG PO BID for 7 Days, #28 TAB 0 Refills 2 TABLETS TWICE DAILY X 7 DAYS Prov: OH COLIN 06/14/17 Enoxaparin Sodium (Lovenox) 60 Mg/0.6 Ml Syringe 55 MG SQ Q12H for 14 Days, #28 SYRINGE 0 Refills Prov: OH COLIN 06/14/17 Copy Copies To 1: MARIAELENA DESAI DO OH COLIN Jun 14, 2017 11:27
[2017-06-14] MEDS ORDERED: NS IV 1000 ML 1,000 ML IV ONE (11:31)
[2017-06-14 11:49] LABS: BASOPHILS % (AUTO) 0 % (0-10); EOSINOPHILS # (AUTO) 0.1 10^3/uL (0.0-0.3); EOSINOPHILS % (AUTO) 1 % (0-10); LYMPHOCYTES # (AUTO) 1.4 X 10^3 (1.0-4.0); LYMPHOCYTES % (AUTO) 24 % (12-44); MEAN CORPUSCULAR HEMOGLOBIN 33 PG (25-34); MEAN CORPUSCULAR HGB CONC 35 G/DL (32-36); MEAN CORPUSCULAR VOLUME 94 FL (80-99); MEAN PLATELET VOLUME 8.9 FL (7.4-10.4); MONOCYTES # (AUTO) 0.5 X 10^3 (0.0-1.0); MONOCYTES % (AUTO) 9 % (0-12); NEUTROPHILS % (AUTO) 66 % (42-75); PLATELET COUNT 253 10^3/uL (130-400); RED BLOOD COUNT 4.45 10^6/uL (4.35-5.85); RED CELL DISTRIBUTION WIDTH 11.4 % (10.0-14.5)
[2017-06-14 12:06] LABS: ALANINE AMINOTRANSFERASE 24 U/L (0-55); ALBUMIN 3.9 GM/DL (3.2-4.5); ANION GAP 9 MMOL/L (5-14); ASPARTATE AMINO TRANSFERASE 27 U/L (5-34); BILIRUBIN,TOTAL 0.6 MG/DL (0.1-1.0); BLOOD UREA NITROGEN 12 MG/DL (7-18); BUN/CREATININE RATIO 16; CALCIUM 9.4 MG/DL (8.5-10.1); CARBON DIOXIDE 27 MMOL/L (21-32); CHLORIDE 106 MMOL/L (98-107); CREATININE SERUM 0.75 MG/DL (0.60-1.30); GFR ESTIMATED > 60; GLUCOSE 101 MG/DL (70-105); SODIUM 142 MMOL/L (135-145); TOTAL PROTEIN 6.4 GM/DL (6.4-8.2)
[2017-06-14 12:12] LABS: TROPONIN I < 0.30 NG/ML (<0.30)
[2017-06-14] MEDS ORDERED: NS 100 ML (IVPB) BAG IV ONE (12:15)
[2017-06-14] MEDS ORDERED: IOHEXOL 350 MG/ML 150 ML (OMNIPAQUE 350) VIAL IV ONE (12:15)
--- NOTE | 2017-06-14 12:58 | Diagnostic Imaging Report ---
CLINICAL INDICATION: Followup DVT of right subclavian vein. Patient has chest pain with coughing. EXAM: CT angiogram of the chest performed with 125 cc Omnipaque 350 IV contrast. Coronal and oblique MIP images of the vasculature were created to better evaluate anatomy. COMPARISON: None. FINDINGS: There is contrast bolus within the left subclavian vein, left innominate vein, and superior vena cava which causes streak artifact obscuring portions of the aortic arch and great vessels. Visualized portions of the right subclavian artery, bilateral CCA and bilateral cervical vertebral arteries are patent. The right subclavian vein has no contrast within it to evaluate. There are partially occlusive intravascular thrombi seen within the posterior medial subsegmental branch of the right lower lobe pulmonary artery. There is also a partially occlusive intravascular thrombus within the anterior subsegmental branch of the left lower lobe. There is no thoracic aortic dissection or aneurysm. There is mild dependent atelectasis involving the posterior aspects of both lungs. There is a 6 mm soft tissue nodule involving the lateral aspect of right lower lobe seen on series 4, image 84. Otherwise, the remainder of the lungs are clear. Pulmonary bronchi are unremarkable. The thyroid gland is unremarkable as visualized. There is no significant mediastinal or hilar lymphadenopathy. There is no axillary lymphadenopathy. Bilateral subglandular breast implants are seen. The visualized portions of the upper abdominal structures are unremarkable. Bone show no significant acute process. IMPRESSION: 1: There are partially occlusive pulmonary emboli/intravascular thrombus within the subsegmental branches of the right and left lower lobes. 2: There is a 6 mm nodule within the lateral aspect of the right lower lobe. Followup chest CT scan in six months is suggested to evaluate for stability or resolution. Results of this report were discussed with Dr. Oh Colin via the telephone on 06/14/2017 at 1245 hrs. CRITICAL FINDING Dictated by: Dictated on workstation # [id number]
[2017-06-14] MEDS ORDERED: APIX5TAB PO (15:24)
[2017-06-14] MEDS ORDERED: ENOX60DI12 SQ (15:24)
[2017-06-14] MEDS ORDERED: ENOXAPARIN 60 MG/0.6 ML (LOVENOX) SYR SC ONE (15:30)
[2017-06-14 15:39] VITALS: BP 123/87
== END 2017-06-14 15:39 | disposition home or self-care (01) ==
LOC: EDUNIT# 11:02 → ER 11:04
DX: I26.99 Other pulmonary embolism without acute cor pulmonale (principal); I82.B11 Acute embolism and thrombosis of right subclavian vein; E06.3 Autoimmune thyroiditis; Z79.01 Long term (current) use of anticoagulants
CPT/HCPCS: 36415; 71275; 80053; 84484; 85025; 93005

== ENCOUNTER 2017-06-21 17:05 | Emergency (ER) | payer BC ==
[~2017-06-21] VITALS: Ht 165.1 cm; Wt 54.4 kg
[~2017-06-21 17:05] MED LIST: ALPR0.254; APIX5TAB PO; DEXT20TA8; ENOX60DI12 SQ; LORA-877; PROG200C6; THYR60TA2
--- OUTSIDE RECORDS SUMMARY | 2017-06-21 17:11 | XMS REPORT | Continuity of Care Document ---
Demographics Preferred Language Unknown Marital Status Unknown Quaker Affiliation Unknown Race Unknown Ethnic Group Unknown Author Author [facility] Address Unknown Phone Unavailable Allergies Active Description Code Type Severity Reaction Onset Reported/Identified Relationship to Patient Clinical Status Yes Penicillins [id number] Drug Allergy Unknown RASH 09/06/2011 Medications There [...] Procedures Code [place] [address] PSYCH DIAGNOSTIC EVALUATION 09/11/2012 73846 PSYTX PT&/FAMILY 45 MINUTES 10/23/2012 Results Test Result Range Complete blood count (CBC) with automated white blood cell (WBC) differential - 06/14/17 11:44 Blood leukocytes automated count (number/volume) 6.0 10*3/uL 4.3-11.0 Blood erythrocytes automated count (number/volume) 4.45 10*6/uL 4.35-5.85 Venous blood hemoglobin measurement (mass/volume) 14.7 g/dL 11.5-16.0 Blood hematocrit (volume fraction) 42 % 35-52 Automated erythrocyte mean corpuscular volume 94 [foz_us] 80-99 Automated erythrocyte mean corpuscular hemoglobin (mass per erythrocyte) 33 pg 25-34 Automated erythrocyte mean corpuscular hemoglobin concentration measurement ( mass/volume) 35 g/dL 32-36 Automated erythrocyte distribution width ratio 11.4 % 10.0-14.5 Automated blood platelet count (count/volume) 253 10*3/uL 130-400 Automated blood platelet mean volume measurement 8.9 [foz_us] 7.4-10.4 Automated blood neutrophils/100 leukocytes 66 % 42-75 Automated blood lymphocytes/100 leukocytes 24 % 12-44 Blood monocytes/100 leukocytes 9 % 0-12 Automated blood eosinophils/100 leukocytes 1 % 0-10 Automated blood basophils/100 leukocytes 0 % 0-10 Blood neutrophils automated count (number/volume) 4.0 10*3 1.8-7.8 Blood lymphocytes automated count (number/volume) 1.4 10*3 1.0-4.0 Blood monocytes automated count (number/volume) 0.5 10*3 0.0-1.0 Automated eosinophil count 0.1 10*3/uL 0.0-0.3 Automated blood basophil count (count/volume) 0.0 10*3/uL 0.0-0.1 Comprehensive metabolic panel - 06/14/17 11:44 Serum or plasma sodium measurement (moles/volume) 142 mmol/L 135-145 Serum or plasma potassium measurement (moles/volume) 4.0 mmol/L 3.6-5.0 Serum or plasma chloride measurement (moles/volume) 106 mmol/L 98-107 Carbon dioxide 27 mmol/L 21-32 Serum or plasma anion gap determination (moles/volume) 9 mmol/L 5-14 Serum or plasma urea nitrogen measurement (mass/volume) 12 mg/dL 7-18 Serum or plasma creatinine measurement (mass/volume) 0.75 mg/dL 0.60-1.30 Serum or plasma urea nitrogen/creatinine mass ratio 16 NRG Serum or plasma creatinine measurement with calculation of estimated glomerular filtration rate > NRG Serum or plasma glucose measurement (mass/volume) 101 mg/dL 70-105 Serum or plasma calcium measurement (mass/volume) 9.4 mg/dL 8.5-10.1 Serum or plasma total bilirubin measurement (mass/volume) 0.6 mg/dL 0.1-1.0 Serum or plasma alkaline phosphatase measurement (enzymatic activity/volume) 52 U/L 40-136 Serum or plasma aspartate aminotransferase measurement (enzymatic activity/ volume) 27 U/L 5-34 Serum or plasma alanine aminotransferase measurement (enzymatic activity/volume ) 24 U/L 0-55 Serum or plasma protein measurement (mass/volume) 6.4 g/dL 6.4-8.2 Serum or plasma albumin measurement (mass/volume) 3.9 g/dL 3.2-4.5 Serum or plasma troponin i.cardiac measurement (mass/volume) - 06/14/17 11:44 Serum or plasma troponin i.cardiac measurement (mass/volume) < ng/ mL <0.30 Encounters ACCT No. Visit Date/Time Discharge Status Pt. Type Provider Facility Loc./Unit Complaint [id number] 09/11/2012 14:59:00 09/11/2012 23:59:59 CLS Outpatient [id number] 10/23/2012 14:57:00 Document Registration [id number] 01/08/2017 10:58:00 01/08/2017 23:59:59 CLS Outpatient MARCEL ADAMS [employer] [facility] RAD RLQ ABD PAIN [id number] 12/05/2016 14:12:00 12/05/2016 23:59:59 CLS Outpatient JOSE JARRETT [employer] [facility] RAD CALF PAIN [id number] 05/20/2016 08:07:00 05/20/2016 23:59:59 CLS Outpatient JOSE JARRETT [employer] [facility] RAD THYROMEGALY [id number] 07/29/2014 14:32:00 07/29/2014 23:59:59 CLS Outpatient SHAYLA LAGOS [facility] LAB HOT FLASHES,HIRSUTISM [id number] 12/15/2013 16:05:00 12/15/2013 23:59:59 CLS Outpatient GLORIA HANSEN, JORY Romo [facility] RAD FRONTAL SINUS PAIN AND PRESSURE [id number] 11/19/2013 10:54:00 11/19/2013 23:59:59 CLS Outpatient MARCEL ADAMS [facility] RAD RLQ PAIN [id number] 06/14/2017 11:50:00 Document Registration [id number] 09/10/2011 05:38:00 Document Registration [id number] 09/06/2011 08:00:00 Document Registration
[2017-06-21 18:24] LABS: BASOPHILS % (AUTO) 1 % (0-10); EOSINOPHILS # (AUTO) 0.1 10^3/uL (0.0-0.3); EOSINOPHILS % (AUTO) 2 % (0-10); HEMATOCRIT 40 % (35-52); HEMOGLOBIN 14.1 G/DL (11.5-16.0); LYMPHOCYTES # (AUTO) 2.2 X 10^3 (1.0-4.0); LYMPHOCYTES % (AUTO) 36 % (12-44); MEAN CORPUSCULAR HEMOGLOBIN 33 PG (25-34); MEAN CORPUSCULAR HGB CONC 36 G/DL (32-36); MEAN CORPUSCULAR VOLUME 92 FL (80-99); MEAN PLATELET VOLUME 8.9 FL (7.4-10.4); MONOCYTES # (AUTO) 0.7 X 10^3 (0.0-1.0); MONOCYTES % (AUTO) 11 % (0-12); NEUTROPHILS # (AUTO) 3.1 X 10^3 (1.8-7.8); NEUTROPHILS % (AUTO) 51 % (42-75); PLATELET COUNT 286 10^3/uL (130-400); RED BLOOD COUNT 4.28 10^6/uL (4.35-5.85); RED CELL DISTRIBUTION WIDTH 11.3 % (10.0-14.5); WHITE BLOOD COUNT 6.2 10^3/uL (4.3-11.0)
[2017-06-21 18:30] LABS: INR 0.9 (0.8-1.4); PROTHROMBIN TIME PATIENT 12.6 SEC (12.2-14.7)
[2017-06-21 18:40] LABS: ALANINE AMINOTRANSFERASE 93 U/L (0-55); ALBUMIN 3.8 GM/DL (3.2-4.5); ALKALINE PHOSPHATASE 46 U/L (40-136); BILIRUBIN,TOTAL 0.3 MG/DL (0.1-1.0); BUN/CREATININE RATIO 24; CARBON DIOXIDE 24 MMOL/L (21-32); CHLORIDE 107 MMOL/L (98-107); CREATININE SERUM 0.75 MG/DL (0.60-1.30); GFR ESTIMATED > 60; GLUCOSE 88 MG/DL (70-105); MAGNESIUM 2.2 MG/DL (1.8-2.4); POTASSIUM 4.1 MMOL/L (3.6-5.0); SODIUM 140 MMOL/L (135-145); TOTAL PROTEIN 6.3 GM/DL (6.4-8.2)
[2017-06-21] MEDS ORDERED: RT-ALBUTEROL SULF 2.5 MG/3 ML PRE-MIX VIAL INH STA (18:40)
[2017-06-21 18:47] LABS: MYOGLOBIN SERUM 23.1 NG/ML (10.0-92.0)
--- NOTE | 2017-06-21 19:00 | Diagnostic Imaging Report ---
INDICATION: Shortness of breath. COMPARISON: None. EXAMINATION: Single view of the chest was obtained. FINDINGS: Clear lungs, bilaterally. The heart is normal. No pneumothorax. Osseous structures are normal. IMPRESSION: Negative chest. Dictated by: Dictated on workstation # [id number]
--- NOTE | 2017-06-21 22:51 | ED Chest Pain ---
General Chief Complaint: Respiratory Problems Stated Complaint: SOB Nursing Triage Note: PT CO OF SOA, PT HAS RECENT HX OF PE. PT IS CURRENTLY ON LOVENOX AND ELAQUIS. STATES HAS SUDDEN ONSET OF SOA AND SL CHEST PAIN TODAY. PT STATES HAS BEEN OFF HORMONE THERAPY AND HAS NOT TAKEN ANY RECENT TRIPS SINCE BEFORE [facility] Sepsis Screen: No Definite Risk Source: patient Exam Limitations: no limitations History of Present Illness Time seen by provider: 18:12 Initial Comments This 52-year-old woman presents to the emergency room with complaints of chest tightness and a little shortness of breath. She was diagnosed with a right subclavian DVT on June 12 after noting swelling in the arm. Diagnosis was made by ultrasound. On June 14 she developed chest pain, back pain, and shortness of breath. She presented to the ER and pulmonary emboli were identified on CT scan. Patient had been started on Xarelto after the DVT was noted on June 12. Because there were concerns that the PE may have developed after starting Xarelto, she was changed to Eliquis in combination with Lovenox. She continues on these medications and reports strict compliance with no missed doses. Vital signs are within normal limits. Patient's pain is somewhat pleuritic in nature. It worsens a little bit with deep inspiration. Patient reports symptoms improved significantly after the June 14 visit, and the symptoms she is experiencing today have not been present the past couple of days. Patient has no known history of hypercoagulable conditions but does have a vague history of nondescript autoimmune disease. Patient also had recent travel out of the country around the . She denies any history of cardiac disease but has never had a cardiac workup such as stress test or heart catheter. Allergies and Home Medications Allergies Coded Allergies: Penicillins (Unverified Allergy, Unknown, RASH, 06/14/17) Home Medications Alprazolam 0.25 Mg Tablet, (Reported) Apixaban 5 Mg Tablet, 10 MG PO BID for 7 Days, #28 Ref 0 2 TABLETS TWICE DAILY X 7 DAYS Prescribed by: JULI STAHL on 06/14/17 1524 Dextroamphetamine/Amphetamine 20 Mg Tablet, (Reported) Enoxaparin Sodium 60 Mg/0.6 Ml Syringe, 55 MG SQ Q12H for 14 Days, #28 Ref 0 Prescribed by: JULI STAHL on 06/14/17 1524 Loratadine/Pseudoephedrine 1 Each Tab.er.24h, (Reported) Thyroid,Pork 60 Mg Tablet, (Reported) Review of Systems Constitutional: no symptoms reported EENTM: No Symptoms Reported Respiratory: See HPI Cardiovascular: See HPI Gastrointestinal: No Symptoms Reported Genitourinary: No Symptoms Reported Musculoskeletal: no symptoms reported Skin: no symptoms reported Psychiatric/Neurological: No Symptoms Reported Endocrine: No Symptoms Reported Hematologic/Lymphatic: No Symptoms Reported Past Vezvxaq-Tosirr-Rrkwsz Hx Patient Social History Alcohol Use: Denies Use Recreational Drug Use: No Smoking Status: Never a Smoker Recent Foreign Travel: No Contact w/Someone Who Travel: No Recent Infectious Disease Expo: No Recent Hopitalizations: Yes Physical Abuse: No Sexual Abuse: No Immunizations Up To Date Date of Influenza Vaccine: Apr 23, 2011 Seasonal Allergies Seasonal Allergies: No Surgeries History of Surgeries: Yes Surgeries: Adenoidectomy, Orthopedic, Tonsillectomy Respiratory History of Respiratory Disorde: Yes Respiratory Disorders: Pulmonary Embolism Cardiovascular History of Cardiac Disorders: Yes Cardiac Disorders: Deep Vein Thrombosis Neurological History of Neurological Disord: No Reproductive System Hx Reproductive Disorders: Yes (MENORRHAGIA) Genitourinary History of Genitourinary Disor: No Gastrointestinal History of Gastrointestinal Di: No Musculoskeletal 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) HEENT History of HEENT Disorders: No Cancer History of Cancer: No Psychosocial History of Psychiatric Problem: No Suicide Risk Score: 0 Integumentary History of Skin or Integumenta: No Blood Transfusions History of Blood Disorders: No Physical Exam Vital Signs Vital Sign - Last 12Hours 06/21/17 06/21/17 17:57 19:14 Temp 98.1 Pulse 72 Resp 18 B/P (MAP) 111/81 (91) Pulse Ox 100 O2 Delivery Room Air Capillary Refill : Less Than 3 Seconds General Appearance: No Apparent Distress, WD/WN, Thin HEENT: PERRL/EOMI, Normal ENT Inspection, Pharynx Normal Neck: Normal Inspection Respiratory: Chest Non Tender, Lungs Clear, Normal Breath Sounds, No Accessory Muscle Use, No Respiratory Distress Cardiovascular: Regular Rate, Rhythm, No Edema, No Murmur, Normal Peripheral Pulses Gastrointestinal: Normal Bowel Sounds, Non Tender, Soft Extremity: Normal Inspection, No Pedal Edema Neurologic/Psychiatric: Alert, Oriented x3, No Motor/Sensory Deficits, Normal Mood/Affect, mind reader II-XII Norm as Tested Skin: Normal Color, Warm/Dry Progress/Results/Core Measures Results/Orders Lab Results Laboratory Tests Test 06/21/17 18:20 06/21/17 22:15 Range/Units White Blood Count 6.2 4.3-11.0 10^3/uL Red Blood Count 4.28 L 4.35-5.85 10^6/uL Hemoglobin 14.1 11.5-16.0 G/DL Hematocrit 40 35-52 % Mean Corpuscular Volume 92 80-99 FL Mean Corpuscular Hemoglobin 33 25-34 PG Mean Corpuscular Hemoglobin Concent 36 32-36 G/DL Red Cell Distribution Width 11.3 10.0-14.5 % Platelet Count 286 130-400 10^3/uL Mean Platelet Volume 8.9 7.4-10.4 FL Neutrophils (%) (Auto) 51 42-75 % Lymphocytes (%) (Auto) 36 12-44 % Monocytes (%) (Auto) 11 0-12 % Eosinophils (%) (Auto) 2 0-10 % Basophils (%) (Auto) 1 0-10 % Neutrophils # (Auto) 3.1 1.8-7.8 X 10^3 Lymphocytes # (Auto) 2.2 1.0-4.0 X 10^3 Monocytes # (Auto) 0.7 0.0-1.0 X 10^3 Eosinophils # (Auto) 0.1 0.0-0.3 10^3/uL Basophils # (Auto) 0.0 0.0-0.1 10^3/uL Prothrombin Time 12.6 12.2-14.7 SEC INR Comment 0.9 0.8-1.4 Activated Partial Thromboplast Time 32 24-35 SEC Sodium Level 140 135-145 MMOL/L Potassium Level 4.1 3.6-5.0 MMOL/L Chloride Level 107 98-107 MMOL/L Carbon Dioxide Level 24 21-32 MMOL/L Anion Gap 9 5-14 MMOL/L Blood Urea Nitrogen 18 7-18 MG/DL Creatinine 0.75 0.60-1.30 MG/DL Estimat Glomerular Filtration Rate > 60 BUN/Creatinine Ratio 24 Glucose Level 88 70-105 MG/DL Calcium Level 9.0 8.5-10.1 MG/DL Magnesium Level 2.2 1.8-2.4 MG/DL Total Bilirubin 0.3 0.1-1.0 MG/DL Aspartate Amino Transf (AST/SGOT) 63 H 5-34 U/L Alanine Aminotransferase (ALT/SGPT) 93 H 0-55 U/L Alkaline Phosphatase 46 40-136 U/L Myoglobin 23.1 10.0-92.0 NG/ML Troponin I < 0.30 < 0.30 <0.30 NG/ML Total Protein 6.3 L 6.4-8.2 GM/DL Albumin 3.8 3.2-4.5 GM/DL My Orders Orders - VERONICA MROAN MD Ekg Tracing (06/21/17 18:17) Monitor-Rhythm Ecg Trace Only (06/21/17 18:17) Cbc With Automated Diff (06/21/17 18:17) Magnesium (06/21/17 18:17) Chest 1 View, Ap/Pa Only (06/21/17 18:17) Cardiac Profile 1 (06/21/17 18:17) Comprehensive Metabolic Panel (06/21/17 18:17) Myoglobin Serum (06/21/17 18:17) Protime With Inr (06/21/17 18:17) Partial Thromboplastin Time (06/21/17 18:17) O2 (06/21/17 18:17) Saline Lock/Iv-Start (06/21/17 18:17) Albuterol Pre-Mix Nebs (Rt) (Proventil (06/21/17 18:40) Svn Sm Volume Nebulizer Rt-Rfs (06/21/17 18:40) Troponin I (06/21/17 20:34) Ekg Tracing (06/21/17 20:55) Vital Signs/I&O Vital Sign - Last 12Hours 06/21/17 06/21/17 06/21/17 17:57 19:14 23:00 Temp 98.1 98.0 Pulse 72 71 Resp 18 16 B/P (MAP) 111/81 (91) Pulse Ox 100 99 100 O2 Delivery Room Air Room Air Blood Pressure Mean: 91 Progress Note : Progress Note Workup was unremarkable. An albuterol treatment was trialed it did not improve her chest tightness. Case was reviewed with Dr. Roberto who recommended at a minimum performing a four-hour cardiac rule out in the emergency room. Admission was preferred by Dr. Roberto but patient preferred the 4 hour rule out. 4 hour troponin and EKG were normal. The patient was ultimately dismissed home to outpatient follow-up. She was advised to seek cardiac consultation in the outpatient setting. Patient took her own supply of Lovenox and Eliquis in the ER. ECG EKG #1: EKG Time: 17:57 Rate: 73 Rhythm: Normal Sinus Intervals: Normal ECG Impression: Normal Comment Normal sinus rhythm with no ST elevation or depression. No abnormal intervals or axis deviation. EKG #2: EKG Time: 22:38 Rate: 73 Rhythm: Normal Sinus Intervals: Normal ECG Comparisson: Unchanged ECG Impression: Normal Comment Normal sinus rhythm with no ST elevation or depression. No abnormal intervals or axis deviation. Diagnostic Imaging Diagonstic Imaging: Xray Plain Films/CT/US/NM/MRI: chest Comments NAME: LEIDY BURROWS [facility] REC#: [id number] PT STATUS: REG ER : 1965 PHYSICIAN: VERONICA MORAN MD ADMIT DATE: 06/21/17/ER Signed Date of Exam: 06/21/17 CHEST 1 VIEW, AP/PA ONLY INDICATION: Shortness of breath. COMPARISON: None. EXAMINATION: Single view of the chest was obtained. FINDINGS: Clear lungs, bilaterally. The heart is normal. No pneumothorax. Osseous structures are normal. IMPRESSION: Negative chest. Dictated by: Dictated on workstation # [id number] Dict: 06/21/171852 Trans: 06/21/171925 Interpreted by: PANKAJ LAURA Electronically signed by: PANKAJ LAURA 06/21/171925 Departure Impression Impression: Primary Impression: Atypical chest pain Additional Impression: Pulmonary embolism Qualified Codes: I26.99 - Other pulmonary embolism without acute cor pulmonale Disposition: 01 HOME, SELF-CARE Condition: Stable Departure-Patient Inst. Decision time for Depature: 22:50 Referrals: MARIAELENA JARRETT DO (PCP) Primary Care Physician JOSE JARRETT DNP (Family) Primary Care Physician TYLER ROBERTO MD [facility] Patient Instructions: Pulmonary Embolism (Blood Clot in the Lungs) Add. Discharge Instructions: Follow-up with your primary care provider and a contact lens polisher as soon as possible. Return to the emergency room if symptoms worsen. Use Tylenol ( acetaminophen) for pain. All discharge instructions reviewed with patient and/or family. Voiced understanding. Copy Copies To 1: MARIAELENA JARRETT DO Copies To 2: TYLER ROBERTO MD [facility] VERONICA MORAN MD Jun 21, 2017 22:51
[2017-06-21 23:00] VITALS: BP 114/83
== END 2017-06-21 22:55 | disposition home or self-care (01) ==
LOC: EDUNIT# 17:05 → ER 17:06
DX: R07.89 Other chest pain (principal); I26.99 Other pulmonary embolism without acute cor pulmonale; Z79.01 Long term (current) use of anticoagulants; Z90.89 Acquired absence of other organs; Z86.718 Personal history of other venous thrombosis and embolism
CPT/HCPCS: 36415; 71010; 80053; 83735; 83874; 84484; 85025; 85610; 85730; 93041; 94640; 94664

== ENCOUNTER → 2017-12-05 | Outpatient (CLI) | payer BC ==
[~2017-12-05] MED LIST changes: +IOHEXOL 350 MG/ML 100 ML (OMNIPAQUE 350) VIAL IV ONE; +NS 250 ML (IVPB) BAG IV ONE
--- NOTE | 2017-12-05 09:42 | Diagnostic Imaging Report ---
PROCEDURE: CT chest with contrast only. TECHNIQUE: Multiple contiguous axial images were obtained through the chest after administration of intravenous contrast. INDICATION: Right lower lobe pulmonary nodule. Study is performed for followup. Correlation is made with prior CT from 06/14/2017. No axillary lymphadenopathy is detected. Hilar and mediastinal lymphadenopathy seen. Previously noted emboli within bilateral lower lobe branches are not visualized, however, study was not protocoled as a CT angiogram study. No pericardial or pleural fluid is detected. Previously described nodular density in the right lower lobe laterally is less apparent on today's study and barely visible at approximately 4 mm. This is seen on image 32, series 2. No other parenchymal abnormalities are identified. Upper abdomen is unremarkable. IMPRESSION: Stable to decrease in size of previously noted nodule in the right lower lobe when compared with exam from 06/14/2017. No new parenchymal abnormality is seen. No thoracic lymphadenopathy is detected. Dictated by: Dictated on workstation # [id number]
== END ==
LOC: RAD 08:30
PROVIDERS: ATTEND Nurse Practitioner Family
DX: R91.1 Solitary pulmonary nodule (principal)
CPT/HCPCS: 71260

== ENCOUNTER → 2018-04-10 | Outpatient (CLI) | payer BC ==
[~2018-04-10] MED LIST changes: -IOHEXOL 350 MG/ML 100 ML (OMNIPAQUE 350) VIAL IV ONE; -NS 250 ML (IVPB) BAG IV ONE
--- NOTE | 2018-04-10 15:47 | Diagnostic Imaging Report ---
PROCEDURE: CT sinuses without contrast TECHNIQUE: Multiple contiguous axial images were obtained through the sinuses without the use of intravenous contrast. Coronal and sagittal reformations were then performed. INDICATION: Chronic sinusitis. COMPARISON: Correlation is made with prior sinus CT from 12/15/2013. FINDINGS: Frontal sinus is clear. Ethmoid air cells and sphenoid sinus are clear. Bilateral maxillary sinuses are clear. Ostiomeatal complexes are patent. The nasal septum is midline. Mastoid air cells are well aerated. IMPRESSION: No evidence of sinusitis. Dictated by: Dictated on workstation # [id number]
== END ==
LOC: RAD 15:15
PROVIDERS: ATTEND Otolaryngology Otolaryngology/Facial Plastic Surgery
DX: J32.9 Chronic sinusitis, unspecified (principal)
CPT/HCPCS: 70486

== ENCOUNTER → 2022-11-21 | Outpatient (CLI) | payer BC ==
[~2022-11-21] MED LIST changes: +ALPR.25T; -ALPR0.254; +PROG200C10; -PROG200C6
--- NOTE | 2022-11-21 11:43 | Diagnostic Imaging Report ---
PROCEDURE: MRI left joint lower extremity without contrast. TECHNIQUE: Multiplanar, multisequence non contrast-enhanced MRI of the left lower extremity was accomplished. INDICATION: Trouble walking. Pain prior scope 2010. EXAMINATION: Left lower extremity MRI without contrast 11/21/2022. COMPARISON: None. FINDINGS: The extensor mechanism is intact. However, there is a focal area of thickening within the mid patellar tendon with overlying susceptibility artifact suggesting likely postoperative change. No surrounding edema within the tendon is noted. Nonspecific subcutaneous edema seen throughout the anterior knee. ACL and PCL intact. Lateral collateral ligamentous complex intact. MCL intact, however there is surrounding edema especially medial to the MCL suggesting a sprain. The lateral meniscus is intact. Diffuse abnormal signal intensity seen throughout the posterior horn of the medial meniscus predominantly due to myxoid degeneration however there appears to be extension down to the tibial surface consistent with a tear. Mild thinning of the cartilage in the medial compartment is noted. There is minimal thinning of the cartilage with associated spurring along the lateral joint space. There is severe loss of cartilage over the lateral patellar facet with underlying subchondral cystic change. There is a large joint effusion. 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 IMPRESSION: 1. MCL sprain with remaining ligaments and tendons intact. Chronic findings at the patellar tendon. 2. Tear of the posterior horn of the medial meniscus. 3. Degenerative findings and incidental changes as above. Dictated by: Dictated on workstation # [id number]
== END ==
LOC: RAD 09:44
PROVIDERS: ATTEND Nurse Practitioner Family
DX: S83.412A Sprain of medial collateral ligament of left knee, initial encounter (principal); S83.242A Other tear of medial meniscus, current injury, left knee, initial encounter; M25.362 Other instability, left knee; X58.XXXA Exposure to other specified factors, initial encounter
CPT/HCPCS: 73721